=== PATIENT | male | born 1990 | race Caucasian/White ===

== ENCOUNTER 2018-01-12 12:01 | Emergency (ER) | payer SELFPAY ==
[2018-01-12] MEDS ORDERED: TETANUS IMMUNE GLOB 250 UNIT SYG IM (15:00)
[2018-01-12] MEDS: HYDROCODONE/APAP (5/325) TAB PO (15:06)
[2018-01-12] MEDS: DIPHTH/TET/ACEL PERTUSS (ADULT) 0.5 ML VIAL IM* (15:06)
[2018-01-12] MEDS: LIDOCAINE 1% (MDV) 20 ML INJ SC (16:16)
== END 2018-01-12 16:48 | disposition home or self-care (01) ==
LOC: FTE 16:48
DX: S61.215A Laceration without foreign body of left ring finger without damage to nail, initial encounter (principal); J45.909 Unspecified asthma, uncomplicated; W29.0XXA Contact with powered kitchen appliance, initial encounter; Y92.9 Unspecified place or not applicable; Z23 Encounter for immunization
CPT/HCPCS: 12001; 73130-LT; 90471; 90715; 99283-25